=== PATIENT | female | born 1985 | race Caucasian/White ===

== ENCOUNTER 2016-04-17 09:12 | Emergency (ER) | payer OTHER ==
[~2016-04-17] VITALS: Wt 61.8 kg
[2016-04-17] MEDS ORDERED: SOD CHLORIDE 0.9% 1,000 ML IV STA (09:33)
[2016-04-17] MEDS ORDERED: ONDANSETRON 4 MG INJ IV STA ×2 (09:33→09:59)
[2016-04-17] MEDS ORDERED: FAMOTIDINE 20 MG INJ IV STA (09:33)
--- NOTE | 2016-04-17 10:27 | ERD ---
ER Documentation Chief Complaint Date/Time DATE: 04/17/16 TIME: 10:25 Chief Complaint abd pain for 1 week. getting worse with n/v/d. no dysuria or vb HPI 30-year-old female otherwise healthy comes in with epigastric abdominal pain on and off for the past week that became worse yesterday with nausea, vomiting and diarrhea over the last 24 hours. She describes as intermittent,, sharp pain, not getting better with Pepto-Bismol. She did not experience several episodes of nonbloody nonbilious vomiting, she tried drinking tejinder doris prior to arrival and experienced vomiting. She denies fevers or chills. Her abdominal pain is in epigastric region she does not feel any radiation to the right upper quadrant or elsewhere. She denies alcohol abuse. ROS All systems reviewed and are negative except as per history of present illness. Medications Home Meds Active Scripts Metronidazole* (Flagyl*) 500 Mg Tablet, 500 MG PO BID for 7 Days, TAB Prov:YASMEEN MUELLER PA-C 04/17/16 Azithromycin* (Zithromax*) 500 Mg Tablet, 500 MG PO DAILY for 3 Days, TAB Prov:YASMEEN MUELLER PA-C 04/17/16 Ondansetron (Ondansetron Odt) 4 Mg Tab.rapdis, 4 MG PO Q6H Y for NAUSEA AND/OR VOMITING, #15 TAB Prov:YASMEEN MUELLER PA-C 04/17/16 Allergies Allergies: Coded Allergies: No Known Allergy (Unverified , 04/17/16) PMhx/Soc Medical and Surgical Hx: pt denies Medical Hx, pt denies Surgical Hx Hx Alcohol Use: No Hx Substance Use: No Hx Tobacco Use: No Smoking Status: Former smoker Physical Exam Vitals Vital Signs Date Time Temp Pulse Resp B/P Pulse Ox O2 Delivery O2 Flow Rate FiO2 04/17/16 09:15 98.9 90 21 140/84 98 Physical Exam General: Well-developed, well-nourished. The patient appears in no acute distress. HEENT: Head is normocephalic, atraumatic. No scleral icterus. Pupils are equal , round, and reactive. Oral mucous membranes are moist. No pharyngeal erythema. Neck: Supple. Nontender. Lungs: Clear to auscultation. Normal air movement. Heart: Regular rate and rhythm. S1 and S2 are normal. No murmurs, gallops, or rubs. Abdomen: Soft, epigastric tenderness, nondistended. Bowel sounds are normoactive. Negative Marroquin sign, no hepatosplenomegaly. No rebound pain. No tenderness to McBurney's Extremities: No clubbing or cyanosis. Normal pulses. Moving extremities x 4. No weakness. Neurologic: Alert and oriented 3. No focal deficits. Skin: Normal turgor. No rash or lesions. Result Diagram: 04/17/1645 04/17/1645 Results 24 hrs Laboratory Tests Test 04/17/16 09:45 04/17/16 10:38 Alanine Aminotransferase (ALT/SGPT) 20IU/L Albumin 4.4g/dl Albumin/Globulin Ratio 1.41 Alkaline Phosphatase 93IU/L Anion Gap 18 Aspartate Amino Transf (AST/SGOT) 25IU/L Basophils # 0.010^3/ul Basophils % 0.1% Blood Urea Nitrogen 11mg/dl Calcium Level 9.0mg/dl Carbon Dioxide Level 21mmol/L Chloride Level 106mmol/L Creatinine 0.80mg/dl Direct Bilirubin 0.00mg/dl Eosinophils # 0.010^3/ul Eosinophils % 0.2% Globulin 3.10g/dl Glucose Level 138mg/dl Hematocrit 42.7% Hemoglobin 14.6g/dl Indirect Bilirubin 0.7mg/dl Lipase 54U/L Lymphocytes # 1.610^3/ul Lymphocytes % 7.9% Mean Corpuscular Hemoglobin 31.6pg Mean Corpuscular Hemoglobin Concent 34.1g/dl Mean Corpuscular Volume 92.6fl Mean Platelet Volume 7.4fl Monocytes # 0.710^3/ul Monocytes % 3.4% Neutrophils # 17.510^3/ul Neutrophils % 88.4% Nucleated Red Blood Cells # 0.010^3/ul Nucleated Red Blood Cells % 0.0/100WBC Platelet Count 39826^3/UL Potassium Level 3.8mmol/L Red Blood Count 4.6210^6/ul Red Cell Distribution Width 13.4% Sodium Level 141mmol/L Total Bilirubin 0.7mg/dl Total Protein 7.5g/dl White Blood Count 19.810^3/ul Urine Bacteria MODERATE Urine Bilirubin NEGATIVE Urine Clarity CLEAR Urine Color LT. YELLOW Urine Glucose NEGATIVE% Urine Hemoglobin NEGATIVE Urine Ketones 15 Urine Leukocyte Esterase NEGATIVE Urine Microscopic RBC 0-2/HPF Urine Microscopic WBC 0-2/HPF Urine Nitrite NEGATIVE Urine Specific [place] >=1.030 Urine Squamous Epithelial Cells MODERATE Urine Total Protein TRACE Urine Urobilinogen 0.2 E.U./dL Urine pH 5.0 Current Medications Medications (Trade) Dose Ordered Sig/Misbah Route PRN Reason Start Time Stop Time Status Last Admin Dose Admin Sodium Chloride (NS) 1,000 ml @ 1,000 mls/hr Q1H STAT IV 04/17/16 09:33 04/17/16 15:11 DC 04/17/16 09:59 Ondansetron HCl (Zofran Inj) 4 mg ONCE STAT IV 04/17/16 09:33 04/17/16 15:11 DC 04/17/16 09:58 Famotidine (Pepcid Iv) 20 mg ONCE STAT IV 04/17/16 09:33 04/17/16 15:11 DC 04/17/16 10:03 Ondansetron HCl (Zofran Inj) 4 mg ONCE STAT IV 04/17/16 09:59 04/17/16 15:11 DC 04/17/16 10:03 Morphine Sulfate (morphine) 4 mg ONCE STAT IV 04/17/16 10:58 04/17/16 15:11 DC 04/17/16 11:04 IV Flush 10 ml 10 ml STK-MED ONCE .ROUTE 04/17/16 13:50 04/17/16 13:51 DC 04/17/16 14:10 Sodium Chloride (NS) 100 ml @ ud STK-MED ONCE .ROUTE 04/17/16 13:50 04/17/16 13:51 DC 04/17/16 14:10 Iohexol (Omnipaque 300mg/ ml) 150 ml STK-MED ONCE .ROUTE 04/17/16 13:50 04/17/16 13:51 DC 04/17/16 14:11 PROCEDURE: CT abdomen and pelvis with contrast. CLINICAL INDICATION: Nausea and vomiting TECHNIQUE: CT scan of the abdomen and pelvis with contrast was performed. Coronal and sagittal images were also reformatted. 100 cc Omnipaque-300 intravenous contrast was administered without complication. Total exam CTDIvol = 6.27 mGy and DLP = 345 mGy-cm. COMPARISON: None. FINDINGS: Limited noncontrast CT examination was performed Visualized lower thorax: The lung bases are clear. There is no evidence for pleural effusion. Liver, gallbladder, pancreas and spleen: Normal hepatic contour, attenuation in size. There is no evidence for liver mass or ductal dilatation. The gallbladder is unremarkable. No common bile duct dilatation is evident. The pancreas is normal. The spleen is normal, not enlarged. Adrenal glands and genitourinary system: The adrenal glands are normal bilaterally. The kidneys are normal in size, contour and attenuation with no evidence for masses, calculi or hydronephrosis. The ureters are unremarkable. The urinary bladder shows no abnormality. The reproductive organs are unremarkable. Gastrointestinal system: There is small bowel wall thickening of ileum, although evaluation is limited on this noncontrast CT examination. The appendix is not visualized. . A normal amount of fecal debris is present within the colon and there is no wall thickening to suggest colitis. Peritoneum, retroperitoneum, vessels and lymph nodes: The abdominal aorta is normal in caliber. There is no evidence for atherosclerotic calcification. Inferior vena cava is normal in caliber. There is no evidence for adenopathy. There is a small amount of pelvic free fluid. Osseous structures and musculoskeletal system: There is no evidence for acute osseous abnormality or muscular pathology. No subcutaneous abnormalities are present. RPTAT: HSM IMPRESSION: Limited noncontrast CT examination. There are fluid filled mildly thickened ileal small bowel loops located in the region of the pelvis and midabdomen. The appendix is not visualized. Additionally, there is small free fluid in the pelvis. Findings may be secondary to enteritis, secondary to inflammatory or infectious etiologies. Secondary inflammation from etiology such as appendicitis cannot be entirely excluded. CT abdomen pelvis with contrast is recommended. .Nory Pena MD, Date Time Electronically viewed and signed by .Nory Pena MD, on 04/17/2016 13:24 PROCEDURE: CT Abdomen and Pelvis with Contrast CLINICAL INDICATION: Lower abdominal pain follow-up TECHNIQUE: Transaxial images were obtained through the abdomen and pelvis on a multi-slice scanner following the intravenous administration of iodinated contrast. No oral contrast had previously been given. Sagittal and coronal re- formations were subsequently reconstructed. One or more of the following dose reduction techniques were used: - Automated exposure control. - Adjustment of the mA and/or kV according to patient size. - Use of iterative reconstruction technique. Radiation dose: CTDIvol = 5.73 mGy; DLP = 296.17 mGy-cm. COMPARISON: The noncontrast study done earlier on the same date FINDINGS: Lung bases: The visualized lung bases appear unremarkable. Liver: The liver is borderline enlarged but no focal lesion evident. The hepatic and portal veins are patent. Gallbladder: The wall is not thickened. No radiopaque stones are identified. Bile ducts: The intra and extrahepatic bile ducts are normal in caliber. Pancreas: Appears normal with no mass or inflammation evident. Spleen: Normal in size with no focal lesion. Adrenals: Normal with no mass identified. Kidneys, ureters and bladder: The kidneys enhance normally and are normal in size and there is no mass, pathological calcification, or hydronephrosis evident. There is no perinephric stranding. The ureters are normal in caliber and no ureteroliths are identified. The bladder appears unremarkable. Reproductive organs: The uterus deviates slightly to the right of midline. There is a 2.9 x 2.5 x 2.2 cm left adnexal cyst. Stomach, bowel, and mesentery: The stomach appears unremarkable. The jejunum appears normal. There is considerable bowel wall thickening involving most of the ileum as well as the cecum and proximal ascending colon. There is no evidence of bowel obstruction. Appendix: The vermiform appendix is not discretely identified. Peritoneum: There is a small amount of free intraperitoneal fluid most evident in the cul-de-sac measuring 24 HU. No free air is evident. Aorta: Normal in caliber with no aneurysmal dilatation. IVC: Unremarkable. Lymph nodes: No pathologically enlarged nodes are identified. Osseous structures: The osseous elements appear intact. The sacroiliac joints appear normal. IMPRESSION: 1. When compared to the noncontrast CT done earlier on the same date, there continues to be considerable diffuse bowel wall thickening involving the ilium as well as the cecum and proximal ascending colon compatible with a enteritis/ colitis. Again, the vermiform appendix is not discretely identified. The diffuse nature of the findings is not likely related to appendicitis. 2. There is again a small amount of free intraperitoneal fluid within the pelvis measuring approximately 24 HU indicating that it is see there are proteinaceous or hemorrhagic. No free air is evident. 3. Borderline hepatomegaly with no focal lesion. 4. A 2.9 x 2.5 x 2.2 cm left adnexal cyst is again evident. Physician Jimi Date Time Electronically viewed and signed by Physician Jimi on 04/17/2016 14:30 Procedures/MDM ED course: Patient was placed in the bag, IV line was established and blood in urine were obtained. She was given Pepcid 20 mg IV, Zofran 4 mg IV, she continued to have vomiting and was given a repeat dose of Zofran 4 mg IV and a normal saline bolus 1 L. She was continued to complain of pain and was given morphine 4 mg IV. She had serial abdominal examinations, she does have some mild lower abdominal pain, after the morphine she was laying comfortably, no further emesis occurred. MDM: 30-year-old female comes with epigastric abdominal pain 1 week and subsequently developed nausea vomiting and diarrhea over the last [address] abdomen pelvis shows diffuse bowel wall thickening, however not able to visualize the appendix, thereafter the radiologist recommended a follow-up study with CT abdomen and pelvis with IV contrast which was also done that shows evidence of colitis versus enteritis that is not consistent with acute appendicitis. At this time she is well-appearing, she has no electrolyte abnormalities, and her leukocytosis is likely related to the colitis and for the vomiting stress reaction she has been experiencing for the last 24 hours. She will be treated based on her pain for 1 week, Flagyl and Zithromax and Zofran as needed for nausea, she has been advised to take Tylenol at home for pain. The case was reviewed and discussed with Dr. Burkett who agrees with the plan of care including labs, treatment, and advanced imaging as appropriate. Departure Diagnosis: Primary Impression: Abdominal pain Condition: YASMEEN Cesar PA-C Apr 17, 2016 10:27
[2016-04-17 10:32] LABS: ALBUMIN 4.4 g/dl (3.3-4.9)
[2016-04-17 10:33] LABS: POTASSIUM 3.8 mmol/L (3.5-5.1)
[2016-04-17 10:35] LABS: ALBUMIN/GLOBULIN RATIO 1.41; BILIRUBIN,INDIRECT 0.7 mg/dl (0-1.1); BILIRUBIN,TOTAL 0.7 mg/dl (0.2-1.3); CREATININE 0.8 mg/dl (0.44-1.00); TOTAL PROTEIN 7.5 g/dl (6.1-8.1)
[2016-04-17 10:53] LABS: BASOPHILS % 0.1 % (0.0-2.0); EOSINOPHILS % 0.2 % (0.0-7.0); HEMATOCRIT 42.7 % (37.0-47.0); HEMOGLOBIN 14.6 g/dl (12.0-16.0); LYMPHOCYTES # 1.6 10^3/ul (0.8-2.9); LYMPHOCYTES % 7.9 % (15.0-51.0); MEAN CORPUSCULAR HEMOGLOBIN 31.6 pg (29.0-33.0); MEAN CORPUSCULAR HGB CONC 34.1 g/dl (32.0-37.0); MEAN CORPUSCULAR VOLUME 92.6 fl (82.0-101.0); MEAN PLATELET VOLUME 7.4 fl (7.4-10.4); MONOCYTE # 0.7 10^3/ul (0.3-0.9); MONOCYTES % 3.4 % (0.0-11.0); NEUTROPHIL # 17.5 10^3/ul (1.6-7.5); NEUTROPHILS % 88.4 % (39.0-77.0); PLATELET COUNT 440 10^3/UL (140-440); RED BLOOD COUNT 4.62 10^6/ul (4.20-5.40); RED CELL DISTRIBUTION WIDTH 13.4 % (11.5-14.5); UNCORRECTED WBC 19.8 10^3/ul (4.8-10.8); WHITE BLOOD COUNT 19.8 10^3/ul (4.8-10.8)
[2016-04-17 10:54] LABS: CONDITION 1
[2016-04-17] MEDS ORDERED: morphine 4 MG/ML VIAL IV STA (10:58)
[2016-04-17 11:11] LABS: ADD UMIC YES; URINE BLOOD (Dip) NEGATIVE (NEGATIVE); URINE COLOR LT. YELLOW (YELLOW); URINE GLUCOSE (Dip) NEGATIVE (NEGATIVE); URINE KETONES (Dip) 15 (NEGATIVE); URINE LEUKOCYTE ESTERASE (Dip) NEGATIVE (NEGATIVE); URINE NITRITE (Dip) NEGATIVE (NEGATIVE); URINE TOTAL PROTEIN (Dip) TRACE (NEGATIVE); URINE UROBILINOGEN (Dip) 0.2 E.U./dL (0.1-1.0)
[2016-04-17 11:27] LABS: URINE BILIRUBIN (Dip) NEGATIVE (NEGATIVE)
[2016-04-17 11:39] LABS: BACTERIA,URINE MODERATE; SQUAMOUS EPITHELIAL CELL,UR MODERATE; URINE RBCS 0-2 /HPF (0)
--- NOTE | 2016-04-17 13:25 | RADRPT ---
PROCEDURE: CT abdomen and pelvis with contrast. CLINICAL INDICATION: Nausea and vomiting TECHNIQUE: CT scan of the abdomen and pelvis with contrast was performed. Coronal and sagittal im ages were also reformatted. 100 cc Omnipaque-300 intravenous contrast was administered without comp lication. Total exam CTDIvol = 6.27 mGy and DLP = 345 mGy-cm. COMPARISON: None. FINDINGS: Limited noncontrast CT examination was performed Visualized lower thorax: The lung bases are clear. There is no evidence for pleural effusion. Liver, gallbladder, pancreas and spleen: Normal hepatic contour, attenuation in size. There is no evidence for liver mass or ductal dilatation. The gallbladder is unremarkable. No common bile duct dilatation is evident. The pancreas is normal. The spleen is normal, not enlarged. Adrenal glands and genitourinary system: The adrenal glands are normal bilaterally. The kidneys ar e normal in size, contour and attenuation with no evidence for masses, calculi or hydronephrosis. T he ureters are unremarkable. The urinary bladder shows no abnormality. The reproductive organs are unremarkable. Gastrointestinal system: There is small bowel wall thickening of ileum, although evaluation is limi rosalinda on this noncontrast CT examination. The appendix is not visualized. . A normal amount of fecal debris is present within the colon and there is no wall thickening to suggest colitis. Peritoneum, retroperitoneum, vessels and lymph nodes: The abdominal aorta is normal in caliber. Th ere is no evidence for atherosclerotic calcification. Inferior vena cava is normal in caliber. The re is no evidence for adenopathy. There is a small amount of pelvic free fluid. Osseous structures and musculoskeletal system: There is no evidence for acute osseous abnormality o r muscular pathology. No subcutaneous abnormalities are present. RPTAT: HSM IMPRESSION: Limited noncontrast CT examination. There are fluid filled mildly thickened ileal small bowel loops located in the region of the pelvis and midabdomen. The appendix is not visualized. Additionally, there is small free fluid in the pelvis. Findings may be secondary to enteritis, secondary to infla mmatory or infectious etiologies. Secondary inflammation from etiology such as appendicitis cannot be entirely excluded. CT abdomen pelvis with contrast is recommended. .Nory Pena MD, MD Date Time Electronically viewed and signed by .Nory Pena MD, on 04/17/2016 13:24 .Salima/
[2016-04-17] MEDS ORDERED: IOHEXOL 300MG/ML 150 ML BTL ONE (13:50)
[2016-04-17] MEDS ORDERED: SOD CHLORIDE 0.9% 100 ML ONE (13:50)
--- NOTE | 2016-04-17 14:31 | RADRPT ---
PROCEDURE: CT Abdomen and Pelvis with Contrast CLINICAL INDICATION: Lower abdominal pain follow-up TECHNIQUE: Transaxial images were obtained through the abdomen and pelvis on a multi-slice scanner following the intravenous administration of iodinated contrast. No oral contrast had previously be en given. Sagittal and coronal re-formations were subsequently reconstructed. One or more of the following dose reduction techniques were used: - Automated exposure control. - Adjustment of the mA and/or kV according to patient size. - Use of iterative reconstruction technique. Radiation dose: CTDIvol = 5.73 mGy; DLP = 296.17 mGy-cm. COMPARISON: The noncontrast study done earlier on the same date FINDINGS: Lung bases: The visualized lung bases appear unremarkable. Liver: The liver is borderline enlarged but no focal lesion evident. The hepatic and portal veins a re patent. Gallbladder: The wall is not thickened. No radiopaque stones are identified. Bile ducts: The intra and extrahepatic bile ducts are normal in caliber. Pancreas: Appears normal with no mass or inflammation evident. Spleen: Normal in size with no focal lesion. Adrenals: Normal with no mass identified. Kidneys, ureters and bladder: The kidneys enhance normally and are normal in size and there is no ma ss, pathological calcification, or hydronephrosis evident. There is no perinephric stranding. The ur eters are normal in caliber and no ureteroliths are identified. The bladder appears unremarkable. Reproductive organs: The uterus deviates slightly to the right of midline. There is a 2.9 x 2.5 x 2 .2 cm left adnexal cyst. Stomach, bowel, and mesentery: The stomach appears unremarkable. The jejunum appears normal. There is considerable bowel wall thickening involving most of the ileum as well as the cecum and proximal ascending colon. There is no evidence of bowel obstruction. Appendix: The vermiform appendix is not discretely identified. Peritoneum: There is a small amount of free intraperitoneal fluid most evident in the cul-de-sac lino suring 24 HU. No free air is evident. Aorta: Normal in caliber with no aneurysmal dilatation. IVC: Unremarkable. Lymph nodes: No pathologically enlarged nodes are identified. Osseous structures: The osseous elements appear intact. The sacroiliac joints appear normal. IMPRESSION: 1. When compared to the noncontrast CT done earlier on the same date, there continues to be conside rable diffuse bowel wall thickening involving the ilium as well as the cecum and proximal ascending colon compatible with a enteritis/colitis. Again, the vermiform appendix is not discretely identifi ed. The diffuse nature of the findings is not likely related to appendicitis. 2. There is again a small amount of free intraperitoneal fluid within the pelvis measuring approxim ately 24 HU indicating that it is see there are proteinaceous or hemorrhagic. No free air is eviden t. 3. Borderline hepatomegaly with no focal lesion. 4. A 2.9 x 2.5 x 2.2 cm left adnexal cyst is again evident. Physician Jimi Date Time Electronically viewed and signed by Physician Jimi on 04/17/2016 14:30 RH/
[2016-04-17] MEDS ORDERED: AZIT500T3 PO (15:00)
[2016-04-17] MEDS ORDERED: ONDA4TAB14 PO (15:00)
[2016-04-17] MEDS ORDERED: METR500T PO (15:00)
== END 2016-04-17 15:11 | disposition home or self-care (01) ==
LOC: FTE 09:12
DX: R10.13 Epigastric pain (principal); R11.2 Nausea with vomiting, unspecified; Z87.891 Personal history of nicotine dependence
CPT/HCPCS: 36415; 74176; 74177; 80053; 81001; 83690; 85025; 96374; 96375; 96376; 99285; J2270; J2405; J7030; Q9967; 81003

== ENCOUNTER 2017-08-10 20:08 | Emergency (ER) | END 2017-08-11 02:10 | disposition home or self-care (01) ==

== ENCOUNTER 2017-08-12 10:57 | Inpatient (IN) | END 2017-08-15 14:30 | disposition home or self-care (01) | DRG 392 ==